=== PATIENT | male | born 1930 | race Caucasian/White ===

== ENCOUNTER 2016-05-06 13:39 | Observation (INO) | payer OTHER ==
--- NOTE | 2016-05-04 14:57 | CPEKG ---
Heart Rate: 91 RR Interval: 659 P-R Interval: 184 QRSD Interval: 74 QT Interval: 328 QTC Interval: 404 P Taylor: 69 QRS Taylor: -8 T Wave Taylor: 23 EKG Severity - NORMAL ECG - EKG Impression: SINUS RHYTHM Electronically Signed By: Mega Arredondo 04-May-2016 21:20:00
[2016-05-04 15:15] LABS: % IMMATURE GRANULYOCYTES 0.3 % (0.0-1.1); ABSOLUTE IMMATURE GRANULOCYTES 0.03 10^3/uL (0.00-0.10); ADD DIFF? NO; ADD MORPH? NO; ADD SCAN? NO; ATYPICAL LYMPHOCYTE FLAG 10 (0-99); FRAGMENT RBC FLAG 0 (0-99); HEMATOCRIT 45.3 % (40.0-51.0); HEMOGLOBIN 15.2 g/dL (13.7-17.5); LEFT SHIFT FLG 0 (0-99); LIPEMIA HEMOLYSIS FLAG 80 (0-99); MEAN CELL HEMOGLOBIN 31.9 pg (27.9-34.1); MEAN CELL HEMOGLOBIN CONCENTR. 33.6 g/dL (32.4-36.7); MEAN CELL VOLUME 95.2 fL (81.5-99.8); MEAN PLATELET VOLUME 8.9 fL (8.7-11.7); PLATELET CLUMPS FLAG 0 (0-99); PLATELET COUNT 341 10^3/uL (150-400); RED BLOOD CELL COUNT 4.76 10^6/uL (4.40-6.38); RED CELL DISTRIBUTION WIDTH 13.2 % (11.5-15.2)
[2016-05-06] MEDS ORDERED: DEXAMETHASONE 10 MG/ML VIAL IVP ONE (15:30)
[2016-05-06] MEDS ORDERED: ceFAZolin 2 GM/DEXTROSE 100 ML IV ONE (15:30)
[2016-05-06] MEDS ORDERED: THROMBIN (RECOMBINANT) 5,000 UNIT VIAL TP ONE (15:52)
[2016-05-06] MEDS ORDERED: BACITRACIN 50,000 UNITS/10 ML SYR IRR ONE (15:53)
[2016-05-06] MEDS ORDERED: IOPAMIDOL (ISOVUE-M 300) 15 ML VIAL IV ONE ×2 (15:53→16:05)
[2016-05-06] MEDS ORDERED: BUPIVACAINE/EPI 0.25% 30 ML SDV ONE (15:53)
[2016-05-06] MEDS ORDERED: MIDAZOLAM 2 MG/2 ML VIAL ONE (16:12)
[2016-05-06] MEDS ORDERED: fentaNYL 100 MCG/2 ML INJ ONE ×2 (16:15→16:38)
[2016-05-06] MEDS ORDERED: PROPOFOL/EMULSION 500 MG/50 ML BOTTLE IV ONE (16:16)
[2016-05-06] MEDS ORDERED: ALPRAZolam 0.25 MG TAB PO PRN (16:17)
[2016-05-06] MEDS ORDERED: DOCUSATE SODIUM 100 MG CAP PO PRN (16:17)
[2016-05-06] MEDS ORDERED: HYDROCODONE/APAP 5/325 TAB PO PRN (16:17)
[2016-05-06] MEDS ORDERED: METOCLOPRAMIDE 10 MG/2 ML VIAL ONE (16:18)
[2016-05-06] MEDS ORDERED: LIDOCAINE 2% 100 MG/5 ML SYR IVP ONE (16:18)
[2016-05-06] MEDS ORDERED: DEXAMETHASONE 4 MG/ML VIAL ONE (16:18)
[2016-05-06] MEDS ORDERED: ROCURONIUM 50 MG/5 ML VIAL ONE (16:18)
[2016-05-06] MEDS ORDERED: HYDROmorphONE/DILAUDID 1 MG/ML SYR IVP PRN (16:19)
[2016-05-06] MEDS ORDERED: HYDROCODONE/APAP 10/325 TAB PO PRN (16:19)
[2016-05-06] MEDS ORDERED: DIAZEPAM 10 MG/2 ML SYR IVP PRN (16:19)
[2016-05-06] MEDS ORDERED: diphenhydrAMINE 25 MG CAP PO PRN (16:19)
[2016-05-06] MEDS ORDERED: OXYCODONE/APAP 5/325 TAB PO PRN (16:19)
[2016-05-06] MEDS ORDERED: MAGNESIUM HYDROXIDE 30 ML UDCUP PO PRN (16:19)
[2016-05-06] MEDS ORDERED: ONDANSETRON 4 MG/2 ML VIAL IVP PRN (16:19)
[2016-05-06] MEDS ORDERED: BISACODYL 10 MG SUPP PR PRN (16:19)
[2016-05-06] MEDS ORDERED: ACETAMINOPHEN 325 MG TAB PO PRN (16:19)
[2016-05-06] MEDS ORDERED: ONDANSETRON DISINTEGRATING 4 MG TAB PO PRN (16:19)
[2016-05-06] MEDS ORDERED: DIAZEPAM 5 MG TAB PO PRN (16:19)
[2016-05-06] MEDS ORDERED: LACTULOSE 20 GM/30 ML UDCUP PO PRN (16:19)
[2016-05-06] MEDS ORDERED: NS W/ 20 KCl/L 1,000 ML IV SCH (16:30)
[2016-05-06] MEDS ORDERED: ALENDRONATE SODIUM PO SCH (16:30)
[2016-05-06] MEDS ORDERED: SUGAMMADEX SODIUM 200 MG/2 ML VIAL IVP ONE (18:17)
--- NOTE | 2016-05-06 18:32 | POSTOPPROG ---
Post Op Note Date of Operation: 05/06/16 Surgeon: Bryan Duran Culturist: Manuelito Anesthesiologist: Chye Anesthesia: GET(General Endotracheal) Pre-op Diagnosis: L4 compression fracture, L3/4, L4/5 stenosis Post-op Diagnosis: same Indication: low back pain, bilateral leg pain Procedure: L4 kyphoplasty with left L3/4, L4/5 microdecompression Findings: DJD/stenosis/fracture Inf/Abcess present in the surg proc area at time of surgery?: No EBL: Minimal (< 25 ml EBL) Complications: None Drains: Carlton Adams (LUKASZ x 1)
--- NOTE | 2016-05-06 18:33 | SOAPPROG ---
BEBE Progress Note Assessment/Plan: Assessment: 85 yo M sp L4 kyphoplasty and left L3/4, L4/5 microdecompression Plan: stable PT/OT to 3N overnight please call with neuro changes 05/06/16 18:32 Subjective: + back pain, no leg pain Objective: Laboratory Results 05/04/16 14:33 somnolent PERRL, no facial droop ISH x 4 + light touch C/D/I ICD10 Worksheet Patient Problems: Problems Problem Status Diagnosed Lumbar compression fracture Acute Lumbar stenosis Acute - ICD10 Problem Qualifiers (1) Lumbar compression fracture (2) Lumbar stenosis
--- NOTE | 2016-05-06 18:59 | GOP ---
[f rep st] OPERATIVE REPORT DATE OF OPERATION: 05/06/2016 SURGEON: Bryan Duran MD PERSONAL COMPUTER NETWORK ENGINEER: Jarred Billings. ANESTHESIA: General endotracheal with local. 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 POSTOPERATIVE DIAGNOSIS: Severe traumatic/osteoporotic L4 vertebral compression fracture, L3-4 and L4-5 critical spinal stenosis with severe bilateral lower extremity radicular and neurogenic claudication symptoms, intractable back pain. PROCEDURE PERFORMED: Minimally invasive left-sided L3-4 and L4-5 posterior hemilaminectomy, medial facetectomy, and foraminotomy with decompression of spinal canal and lateral recess bilaterally, L4 radiofrequency kyphoplasty procedure, use of intraoperative microscopy, fluoroscopy, and computer volumetric stereotactic navigation with intraoperative neurophysiologic testing. FINDINGS: ESTIMATED BLOOD LOSS: 50 cc. COMPLICATIONS: None. INDICATIONS FOR PROCEDURE: The patient is an 85-year-old man, who suffered a traumatic L4 vertebral compression fracture with approximately 60-70% loss of height and significant retropulsion of disk and bone causing critical spinal stenosis at L3-4 and L4-5. He presents now for minimally invasive microdecompression of L3-4 and L4-5 with stabilization of L4 through the kyphoplasty procedure. The patient and his family, including the and son, understand that this is the least invasive possible approach and if he were younger and could tolerate the procedure, he would be undergoing a 2-level fusion and stabilization instead, but that would likely be too big of a surgery in my opinion and I felt that trying a much less invasive procedure would be in his best interest, even though there is a possibility it could fail. DESCRIPTION OF PROCEDURE: After informed consent was obtained, the patient was taken to the operating room, placed in the prone position on the Carlton table. The lumbosacral area was prepped and draped in a sterile fashion. After fluoroscopic localization of correct levels, the subcutaneous and intramuscular tissues were infiltrated with local anesthesia. A midline incision was then created over the L4 vertebral body. This was carried down to the fascial layer, which was incised using monopolar electrocautery and carried in a subperiosteal plane along the spinous processes at the lamina on the left at the L3-4 and L4-5 levels by angling the retractor rostrally and caudally so as to keep the incision small. After re-verification of the correct levels, the microscope was brought in and the [employer] [place] drill system with a massive fluted bur was used to create hemilaminectomy defects at the L3-4 and L4-5 levels with medial facetectomies in order to adequately decompress the lateral recess, as well as angling the microscope and drill across the midline to decompress the right side. The angled curettes and Kerrison rongeurs were also utilized. Following adequate decompression rostrally, caudally, medially, and laterally on both levels, the wound was copiously irrigated and meticulous hemostasis was achieved. Following this, the SAIC neuronavigational system was brought in and using computer volumetric stereotactic navigation, the L4 pedicle was cannulated bilaterally through a percutaneous approach. The Berenice radiofrequency system was then inserted and after creating cavities bilaterally, bone cement was injected under real-time fluoroscopy. There was some slight leakage into the disk space on the left side and the injection was halted. Significantly more bone cement was injected on the right side and I did achieve what I felt was a good fill. Intraoperative somatosensory-evoked potentials were unchanged throughout the procedure. The cannulas were removed and the wound was copiously irrigated with antibiotic irrigation, and closed in a layered fashion using interrupted Vicryl sutures, followed by Steri-Strips on the skin after placement of a drain. The subcutaneous and intramuscular tissues were re-infiltrated with local anesthesia as well. DISPOSITION: The patient is currently in the process of being repositioned for extubation. /[id number]/MODL MTDD
--- NOTE | 2016-05-06 20:12 | DX ---
Intraoperative fluoroscopy, 1651 History: L4 microdiskectomy and kyphoplasty Comparison: MRI lumbar spine April 19 Dose = 26.3 mGy Findings: Two views demonstrate cement in the compressed L4 vertebral body and within the L3-L4 disk space. Intraoperative alignment is anatomic. Impression: Anatomic intraoperative alignment of the low lumbar spine.
[2016-05-06] MEDS ORDERED: FAMOTIDINE 20 MG/NACL 50 ML IV SCH (21:00)
[2016-05-06] MEDS ORDERED: IRBESARTAN 150 MG TAB PO SCH (21:00)
[2016-05-06] MEDS: POLYETHYLENE GLYCOL 3350 17 GM PKT PO SCH (21:07)
[2016-05-06] MEDS: SENNOSIDES/DOCUSATE SODIUM TAB PO SCH (21:08)
[2016-05-06] MEDS: FAMOTIDINE 20 MG TAB PO SCH (21:10)
[2016-05-06 22:48] VITALS: RESP 16
[2016-05-07 07:57] VITALS: BP 124/74; PULSE 87; TEMP 97.8; O2SAT 97
[2016-05-07] MEDS ORDERED: ENOXAPARIN 40 MG/0.4 ML SYR SC SCH (09:00)
[2016-05-07] MEDS ORDERED: PANTOPRAZOLE SODIUM 40 MG TAB PO PRN (09:00)
[2016-05-07] MEDS: FAMOTIDINE 20 MG TAB PO SCH (09:27)
[2016-05-07] MEDS: SENNOSIDES/DOCUSATE SODIUM TAB PO SCH (09:27)
[2016-05-07] MEDS: POLYETHYLENE GLYCOL 3350 17 GM PKT PO SCH (09:43)
--- NOTE | 2016-05-07 10:17 | NEUSURGPN ---
Date of Surgery: 05/06/16 Post Op Day: 1 Assessment/Plan: POD #1 s/p L4 Kyphoplasty and L3/4,4/5 Microdecompression. doing well, pain controlled Plan: Advance with PT and DC home if doing well today Subjective: awake, alert, comfortable. denies numbness or tingling Preop pain improved. Objective: Incision: CDI LUKASZ: 20 ML Neuro: MADRIGAL, sens +LT Neurosurgery Physical Exam - Vitals, I&O, Labs I and O 05/06/16 05/07/16 05/08/16 05:59 05:59 05:59 Intake Total 1300 Output Total 945 225 Balance 355 -225 Weight 70.307 kg Intake: Oral (ml) 300 IV Intake (ml) 1000 Output: Urine (ml) 850 225 Urinal 850 225 Estimated Blood Loss (ml) 30 Wound Drainage (ml) 55 #1 Back Carlton Adams 55 Wound Drainage (ml) 10 #1 Back Carlton Adams 10 Vital Signs Temp Pulse Resp BP Pulse Ox 36.6 C 87 16 124/74 H 97 05/07/16 07:52 05/07/16 07:52 05/07/16 07:52 05/07/16 07:52 05/07/16 07:52 Laboratory Results 05/04/16 14:33 ICD10 Worksheet Patient Problems: Problems Problem Status Diagnosed Lumbar compression fracture Acute Lumbar stenosis Acute
--- NOTE | 2016-05-07 10:31 | DX ---
Lumbar spine upright AP and lateral 0950 hours. History: Followup L4 kyphoplasty. Findings: Comparison to April 15, 2016. Vertebroplasty cement is noted along the superior aspect of the compressed L4 vertebral body segment. There is persistent retropulsion of the posterior superior corner into the spinal canal area. The pa darling has had left hemilaminectomy at this level. Drainage catheter is noted posteriorly. Mild to mod erate anterior wedge compression fracture is stable at T12. Prominent Schmorl's node is present infer ior endplate. The remainder the vertebral body heights remain well maintained. There are no subluxati ons. Moderate to marked intervertebral disk space narrowing is noted at L5-S1 stable in appearance wi th mild hypertrophic osteophytes and endplate sclerosis. There are no new lytic or sclerotic osseous lesions. Moderate atherosclerotic calcification is present of the abdominal aorta without aneurysm. N umerous splenic calcified granulomas are seen in left upper quadrant. Cholecystectomy clips are noted in the right upper quadrant. Impression: 1. Vertebroplasty cement along the superior aspect of L4 compressed vertebral body segment. 2. Moderate retropulsion posterior superior margin of L4 segment into the spinal canal. There has bee n interval left hemilaminectomy. 3. Stable mild to moderate anterior wedge compression T12 segment. 4. Stable moderate to marked degenerative disk disease at L5-S1.
== END 2016-05-07 13:47 | disposition home or self-care (01) ==
LOC: INTOOBSV 13:39 → F3N 13:39
PROVIDERS: ADMIT Neurological Surgery; ATTEND Neurological Surgery
PROC: 01NB0ZZ Release Lumbar Nerve, Open Approach (ICD-10-PCS; principal; 2016-05-06 15:15)
PROC: 4A1004G Monitoring of Central Nervous Electrical Activity, Intraoperative, Open Approach (ICD-10-PCS; principal; 2016-05-06 15:15)
PROC: 0QS03ZZ Reposition Lumbar Vertebra, Percutaneous Approach (ICD-10-PCS; principal; 2016-05-06 15:15)
PROC: 00NY0ZZ Release Lumbar Spinal Cord, Open Approach (ICD-10-PCS; principal; 2016-05-06 15:15)
PROC: 0QU03JZ Supplement Lumbar Vertebra with Synthetic Substitute, Percutaneous Approach (ICD-10-PCS; principal; 2016-05-06 15:15)
PROC: 8E09XBF Computer Assisted Procedure of Head and Neck Region, With Fluoroscopy (ICD-10-PCS; principal; 2016-05-06 15:15)
DX: S32.049A Unspecified fracture of fourth lumbar vertebra, initial encounter for closed fracture (principal); M81.0 Age-related osteoporosis without current pathological fracture; M48.06 Spinal stenosis, lumbar region; M54.16 Radiculopathy, lumbar region; X58.XXXA Exposure to other specified factors, initial encounter; Y92.9 Unspecified place or not applicable
CPT/HCPCS: 22514; 63047; 63048; 72100; 76001; 93005; 97161; 97165; C1713; G8978; G8979; G8987; G8988; G8989; J0690; J1100; J1650; J2001; J2250; J2704; J2765; J3010; Q9967

== ENCOUNTER 2016-11-24 17:28 | Emergency (ER) | payer OTHER ==
[2016-11-24 17:36] VITALS: TEMP 98.1
--- NOTE | 2016-11-24 17:54 | EDPHY ---
H & P Stated Complaint: fell getting out of car yesterday/ ?dislocation r shoulder at urgent care Time Seen by Provider: 11/24/16 17:53 - Personal History Current Tetanus/Diphtheria Vaccine: No - Medical/Surgical History Hx Asthma: Yes Hx Chronic Respiratory Disease: No Hx Diabetes: No Hx Cardiac Disease: No Hx Renal Disease: No Hx Cirrhosis: No Hx Alcoholism: No Hx Splenectomy or Spleen Trauma: No Other PMH: HTN, arthritis, sinus surgery - drillout, prostate TURP, caterac surgery, asthma - Social History Smoking Status: Former smoker Constitutional: Initial Vital Signs Temperature (C) 36.7 C 11/24/16 17:32 Heart Rate 119 H 11/24/16 17:32 Respiratory Rate 23 H 11/24/16 17:32 Blood Pressure 165/87 H 11/24/16 17:32 O2 Sat (%) 90 L 11/24/16 17:32 O2 Delivery Mode [Post Nasal Cannula Procedure 3rd] O2 Delivery Mode [Post Nasal Cannula Procedure 2nd] O2 Delivery Mode [Procedural Non-Rebreather Mask 1st Post Procedure 1st] O2 Delivery Mode [.Immediate Non-Rebreather Mask Pre-Procedure] O2 Delivery Mode Room Air O2 (L/minute) [Post Procedure 2 3rd] O2 (L/minute) [Post Procedure 6 2nd] O2 (L/minute) [Procedural 1st 15 Post Procedure 1st] O2 (L/minute) [.Immediate Pre- 15 Procedure] Allergies/Adverse Reactions: No Known Allergies Allergy (Verified 11/24/16 17:30) Home Medications: Medication Instructions Recorded ALPRAZolam [Xanax 0.25 MG (*)] 0.25 mg PO HS PRN 04/26/16 Alendronate Sodium 150mg 150 mg PO Q30D 04/26/16 Aspirin [Aspirin 81mg (*)] 81 mg PO DAILY 04/26/16 Docusate Sodium [Colace 100 MG (*)] 300 mg PO HS PRN 04/26/16 Herbals/Supplements -Info Only 1 ea PO DAILY 04/26/16 Irbesartan [Avapro 150 mg (*)] 300 mg PO HS 04/26/16 Multivitamins [Multivitamin (*)] 1 each PO DAILY 04/26/16 Omeprazole [Prilosec 20 mg] 20 mg PO DAILY PRN 04/26/16 celeCOXIB [Celebrex (*)] 200 mg PO DAILY PRN 04/26/16 Methocarbamol [Robaxin 750 mg (*)] 750 mg PO QID #60 tab 05/07/16 Polyethylene Glycol 3350 [Miralax 17 gm PO TID #0 pkt 05/07/16 17 gm (*)] Sennosides/Docusate Sodium 1 - 2 tab PO BID #0 tab 05/07/16 [Senokot-S] oxyCODONE IR [Oxycodone Ir (*)] 5 - 10 mg PO Q4-6PRN PRN #60 tab 05/07/16 Medical Decision Making - Diagnostics Imaging: I viewed and interpreted images myself ED Course/Re-evaluation: CHIEF COMPLAINT: Dislocated shoulder. HISTORY OF PRESENT ILLNESS: This patient is an 85 year old male arriving with his family from urgent care for evaluation of a dislocated shoulder. He fell getting out of the ar yesterday afternoon, putting out his right arm as he fell. Today, he visited his primary care physician, Dr. Casillas, who ordered an x-ray. X-ray shows anteriorly dislocated right shoulder and fracture deformity of right humeral head. He presents today for reduction. No other trauma or complains. No fever, chills, chest pain, shortness of breath, or other associated symptoms. REVIEW OF SYSTEMS: A 10 point review of systems was performed and is negative with the exception of the elements mentioned in the history of present illness. PHYSICAL EXAM: HR, BP, O2 Sat, RR. Temp noted General Appearance: Alert, well hydrated, appropriate, and non-toxic appearing. Head: Atraumatic without scalp tenderness or obvious injury Eyes: Pupils equal, round, reactive to light and accommodation, EOMI, no trauma , no injection. Ears: Clear bilaterally, no perforation, normal landmarks Nose: Atraumatic, no rhinorrhea, clear. Throat: There is no erythema or exudates, no lesions, normal tonsils, mucus membranes moist. Neck: Supple, 2+ carotid upstroke, nontender, no lymphadenopathy. Respiratory: No retractions, no distress, no wheezes, and no accessory muscle use. Lungs are clear to auscultation bilaterally. Cardiovascular: Regular rate and rhythm, no murmurs, rubs, or gallops. Bilateral carotid, radial, dorsalis pedis, and posterior tibial pulses intact. Good capillary refill all extremities. Gastrointestinal: Abdomen is soft, nontender, non-distended, no masses, no rebound, no guarding, no peritoneal signs. Musculoskeletal: Right shoulder deformity. Neurological: Alert, appropriate, and interactive. The patient has normal DTRs and non-focal cranial nerves, motor, sensory, and cerebellar exam. Skin: No rashes, good turgor, no nodules on palpation. Past medical history: Hypertension, arthritis, asthma Past surgical history: Sinus surgery, prostate TURP, cataract surgery Family history: Noncontributory Social history: and son at bedside. Lives in [place]. DIAGNOSTICS/PROCEDURES/CRITICAL CARE TIME: Procedure: Conscious sedation. Indication: Shoulder reduction The patient is an appropriate candidate to tolerate procedural sedation. The patient's vitals signs and mental status are appropriate. The risks, benefits and alternatives of the sedation were discussed with the patient. The patient is ASA classification 1. The patient's Mallampati airway score was 1 and the patient did meet the 3-3-2 airway measurements. A time out was completed. The patient was sedated with 50mg IV propofol. The patient was monitored with continuous pulse oximetry, radio electrician and end tidal CO2. There were no complications and no significant hypoxemia. I performed both the sedation and the procedure. The total time I spent at the bedside during the procedural sedation was 30 minutes. The patient was examined after the procedural sedation and has returned to their pre-sedation baseline with normal vital signs and a normal examination. Procedure: Reduction of dislocated shoulder Time-out completed immediately before the procedure. IV established. O2 administered. Placed on pulse oximeter and [id number]. Neurovascular exam intact pre-procedure. Given 50mg IV propofol for pain and sedation. The right shoulder was reduced using traction-countertraction. Reassessed post-procedure. Neurovascular status intact- normal median, radial, ulnar and axillary nerve motor and sensory exam. Exam indicated reduction. Confirmed reduction on X-ray. Arm sling applied. The procedure was performed by myself, Dr. Ovalle. DIFFERENTIAL DIAGNOSIS: The differential diagnosis for the patient's trauma included but was not limited to shoulder dislocation, humeral head fracture, intracranial injury, long bone and pelvic bone fractures, spinal injury, intra-abdominal injury, and intra-thoracic injury. MEDICAL DECISION MAKIN85 year old male presents with dislocated right shoulder. Reviewed patient's outpatient x-ray, taken two hours ago. Plan to reduce patient's shoulder under conscious sedation. See procedure notes. Patient tolerated procedure well. Post-reduction films show correct anatomical shoulder placement. The patient will follow up with orthopedics. Care and return precautions discussed. The patient and his family are comfortable with this plan. - Data Points Medications Given: Discontinued Medications Propofol (Diprivan) 70 mg IVP EDNOW ONE Stop: 11/24/16 19:00 Last Admin: 11/24/16 19:03 Dose: 50 mg Departure - Departure Disposition: Home, Routine, Self-Care Clinical Impression: Shoulder dislocation Qualifiers: Encounter type: initial encounter Laterality: right Qualified Code(s): S43.004A - Unspecified dislocation of right shoulder joint, initial encounter Condition: Good Instructions: Shoulder Dislocation (ED) Additional Instructions: 1. Follow up with the head orthopedic team physician this week. Call tomorrow for an appointment. 2. Keep your arm in the sling until you follow up with the head orthopedic team physician. You may take it off to shower. 3. Return to the Emergency Department for increasing pain, numbness, or weakness or other worsening of condition. Referrals: Bennie Casillas MD [Primary Care Provider] - As per Instructions Alban Rodriguez MD [Medical Doctor] - As per Instructions Report Scribed for: Rayshawn Ovalle Report Scribed by: Bonnie Vallecillo Date of Report: 11/24/16 Time of Report: 19:13
[2016-11-24] MEDS ORDERED: PROPOFOL 200 MG/20 ML VIAL IVP ONE (18:59)
[2016-11-24 19:42] VITALS: BP 138/88; PULSE 96; RESP 16; O2SAT 90
== END 2016-11-24 19:43 | disposition home or self-care (01) ==
PROC: 0RSJXZZ Reposition Right Shoulder Joint, External Approach (ICD-10-PCS; principal; 2016-11-24)
DX: S43.004A Unspecified dislocation of right shoulder joint, initial encounter (principal); I10 Essential (primary) hypertension; J45.909 Unspecified asthma, uncomplicated; Z79.82 Long term (current) use of aspirin; Z87.891 Personal history of nicotine dependence; W18.39XA Other fall on same level, initial encounter; Y99.8 Other external cause status; Y93.89 Activity, other specified
CPT/HCPCS: 23650; 73020; 99152; 99153; 99285; A4565; J2704

== ENCOUNTER → 2016-11-24 | Outpatient (CLI) | payer OTHER | LOC: BMCIMAGING 16:33 | PROVIDERS: ATTEND Internal Medicine | DX: S43.014A Anterior dislocation of right humerus, initial encounter (principal); S42.201A Unspecified fracture of upper end of right humerus, initial encounter for closed fracture; W19.XXXA Unspecified fall, initial encounter ==

== ENCOUNTER → 2017-01-04 | Outpatient (CLI) | payer OTHER | LOC: FIMAGING 11:52 | PROVIDERS: ATTEND Internal Medicine Pulmonary Disease | DX: R91.8 Other nonspecific abnormal finding of lung field (principal); I25.10 Atherosclerotic heart disease of native coronary artery without angina pectoris; S22.080A Wedge compression fracture of T11-T12 vertebra, initial encounter for closed fracture ==

== ENCOUNTER → 2017-01-07 | Outpatient (CLI) | payer OTHER | LOC: FIMAGING 16:04 | PROVIDERS: ATTEND Physician Assistant | DX: M25.511 Pain in right shoulder (principal); S43.014S Anterior dislocation of right humerus, sequela; M75.121 Complete rotator cuff tear or rupture of right shoulder, not specified as traumatic; M24.011 Loose body in right shoulder; M75.21 Bicipital tendinitis, right shoulder; M19.011 Primary osteoarthritis, right shoulder; M77.9 Enthesopathy, unspecified ==

== ENCOUNTER → 2017-12-16 | Outpatient (CLI) | payer OTHER | LOC: BMCIMAGING 14:28 | PROVIDERS: ATTEND Internal Medicine Rheumatology | DX: Z13.820 Encounter for screening for osteoporosis (principal); M81.8 Other osteoporosis without current pathological fracture ==

== ENCOUNTER → 2018-07-07 | Outpatient (CLI) | payer OTHER | LOC: BMCIMAGING 14:02 | PROVIDERS: ATTEND Internal Medicine | DX: J40 Bronchitis, not specified as acute or chronic (principal) ==